=== PATIENT | male | born 2005 | race Hispanic/Latino ===

== ENCOUNTER 2024-04-27 21:03 | Emergency (ER) | payer SELFPAY ==
[2024-04-27 21:32] LABS: #Basophils 0.04 10x3/uL (0.0-0.2); %Basophils 0.4 % (0.0-1.0); %Eosinophils 0.7 % (0.0-10.0); %Lymphocytes 32.6 % (28.0-48.0); %Monocytes 8.1 % (0.0-4.0); %Neutrophils 57.9 % (31.0-61.0); Hemoglobin 15.5 g/dL (14.0-18.0); Mean Corpuscular HGB CONC 35.2 g/dL (32.0-36.0); Mean Corpuscular Hemoglobin 29.4 pg (25.0-35.0); Mean Corpuscular Volume 83.3 fL (78.0-98.0); Mean Platelet Volume 11.2 fL (7.4-10.4); Platelet Count 320 10x3/uL (130-400); RBC Distribution Width 11.9 % (11.5-14.5); Red Blood Cell (RBC) Count 5.28 mill/uL (4.00-5.20)
[2024-04-27 21:44] LABS: BHCG - Serum Negative; Pregs Control Background? CLEAR/WHITE (CLR/WHITE); Pregs Control Bar Appear? YES (CONTROL BAR)
[2024-04-27 21:49] LABS: ALT (SGPT) 97 U/L (8-55); AST (SGOT) 42 U/L (10-45); Albumin 4.5 g/dL (3.5-5.0); Alkaline Phosphatase 72 U/L (50-130); Anion Gap 12 mmol/L (10-20); BUN (Urea Nitrogen) 8 mg/dL (8.4-21.0); Bilirubin, Total 0.8 mg/dL (0.2-1.2); Calc. Creatinine Clearance 0 mL/min (70-130); Calcium 9.5 mg/dL (7.8-10.44); Carbon Dioxide 26 mmol/L (22-29); Chloride 106 mmol/L (98-107); Estimated GFR 129; Globulin 3.5 g/dL (2.4-3.5); Glucose 101 mg/dL (70-105); Lipase 11 U/L (8-78); Potassium 4.2 mmol/L (3.5-5.1); Sodium 140 mmol/L (136-145)
== END 2024-04-27 22:25 | disposition home or self-care (01) ==
LOC: ERS 21:03
DX: K29.00 Acute gastritis without bleeding (principal)
CPT/HCPCS: 36415; 76705; 80053; 83690; 84703; 85025